=== PATIENT | female | born 1970 | race Caucasian/White ===

== ENCOUNTER → 2016-12-26 | Outpatient (CLI) | payer OTHER ==
[~2016-12-26] MED LIST: ADVAIR 2501 DISK W/D PO; ADVAIR 5001 DISK W/D PO; DEPAKOTE PO; KLONOPIN PO; LODINE PO; NEURONTIN PO; SEROQUEL PO; SKELAXIN PO; STERAPRED DS; ZOLOFT PO
--- NOTE | ~2016-12-26 | MY29 ---
[facility] A Service of [facility] RADIOLOGY TEXT RESULTS PATIENT: WATSON AGUIRRE LOCATION: [facility] : 72 UNIT #: [id number] AGE: [address]: Mel Boswell MD SEX: F ORDER DR: [id number] [facility] [address] [place], [place] [address] [id number] O MR#: [id number] Acc #: [id number] NAME: WATSON AGUIRRE. : 1970 SEX: F STUDY DATE/TIME: 12/26/2016 12:06 UNIT: [facility] ROOM: STUDY DESCRIPTION: MY ADDISON SCREENING W/ CAD BILAT Attending Physician: Mel Boswell M.D. Ordering Physician: Mel Boswell M.D. Primary Care Physician: Mel Boswell M.D. MEDICAL IMAGING REPORT This report is preliminary unless electronic signature is present EXAM Digital screening mammogram, 12/26/2016. HISTORY 46-year-old woman, no risk elevation. Prior left breast biopsy. Annual screen. COMPARISON Mammograms date to 03/28/2012, with most recent 02/26/2015. FINDINGS Digital imaging of each breast was completed utilizing screening protocol. Review includes FDA-approved CAD device. Breast parenchyma is predominantly fatty replaced. Well-circumscribed mass in the immediate subareolar location is again noted. There is a biopsy marker centrally located in the mass. The mass is stable, at approximately 2 cm, and periphery remains well circumscribed. Characteristics favor a benign fibroadenoma. I see no interval-occurring suspicious mass or interval-occurring suspicious microcalcifications. There is no architectural distortion. IMPRESSION Benign mammogram with stable subareolar left breast mass as described. Annual screening recommended. Patients over the age of 40 are entered into a reminder system with target due date for the next mammogram. A result letter will also be sent to the patient. BIRADS: 2 Benign Finding [facility] A Service of [facility] RADIOLOGY TEXT RESULTS PATIENT: WATSON AGUIRRE LOCATION: [facility] : 72 UNIT #: [id number] AGE: [address]: Mel Boswell MD SEX: F ORDER DR: Dictated by... Jc Burleson M.D. THIS IS AN ELECTRONICALLY VERIFIED REPORT Jc Burleson M.D. at 12/27/2016 7:04 AM JBB/torito TD: 12/27/2016 03:46 JOB #: [id number] MEDICAL IMAGING REPORT Page 1 of 1 COPY
== END | disposition home or self-care (01) ==
LOC: CWCC 11:43
DX: Z12.31 Encounter for screening mammogram for malignant neoplasm of breast (principal); N63 Unspecified lump in breast; Z98.890 Other specified postprocedural states
CPT/HCPCS: G0202